=== PATIENT | male | born 1985 | race Two or more races ===

== ENCOUNTER 2021-02-23 10:56 | Inpatient (IN) | payer BC ==
[2021-02-23 11:36] VITALS: BMI 21.4
[2021-02-23] MEDS ORDERED: NICOTINE POLACRILEX 2 MG GUM BUC PRN (13:32)
[2021-02-23] MEDS ORDERED: BISMUTH SUBSALICYLATE 524 MG/30 ML PO PRN (13:32)
[2021-02-23] MEDS ORDERED: MAGNESIUM HYDROX 2400MG/30ML ORAL SUSPENSION 30 ML CUP PO PRN (13:32)
[2021-02-23] MEDS ORDERED: MENTHOL/PHENOL 1 EACH UD MM PRN (13:32)
[2021-02-23] MEDS ORDERED: MAGNESIUM CITRATE 300 ML BOTTLE PO PRN (13:32)
[2021-02-23] MEDS ORDERED: MAG HYDROX/AL HYDROX/SIMETH 30 ML UNIT-DOSE CUP PO PRN (13:32)
[2021-02-23] MEDS ORDERED: ONDANSETRON *ODT* 4 MG TABLET SL PRN (13:32)
[2021-02-23] MEDS ORDERED: ACETAMINOPHEN 325 MG TABLET (FP) PO PRN ×2 (13:32)
[2021-02-23] MEDS ORDERED: LORazepam 1 MG TABLET PO PRN (13:36)
[2021-02-23 15:26] LABS: HEMATOCRIT 39.7 % (35.4-49); HEMOGLOBIN 13.4 GM/dL (11.7-16.9); MCH 33.7 pg (25.7-33.7); MCHC 33.8 g/dl (32.0-35.9); MEAN CELL VOLUME 99.7 fl (80-96); MEAN PLT VOLUME 8.2 fl (7.5-11.1); PLATELET COUNT 260 10^3/uL (134-434); RBC 3.98 M/mm3 (4.00-5.60); RDW 12.5 % (11.9-15.9); WHITE BLOOD COUNT 7.7 K/mm3 (4.0-10.0)
[2021-02-23 15:28] LABS: CALCIUM 9.3 mg/dL (8.5-10.1)
[2021-02-23 15:29] LABS: ALBUMIN 4.5 g/dl (3.4-5.0); BLOOD UREA NITROGEN 21.9 mg/dL (7-18)
[2021-02-23] MEDS ORDERED: PATIENT'S OWN MEDICATION (NON-FORMULARY) (Losartan Potassium [Cozaar] 100 MG Tablet) PO SCH (15:30)
[2021-02-23 15:32] LABS: CREATININE 1.3 mg/dL (0.55-1.3)
[2021-02-23 15:34] LABS: BILIRUBIN,TOTAL 0.5 mg/dL (0.2-1); TOT PROT 8.3 g/dl (6.4-8.2)
[2021-02-23] MEDS: hydrOXYzine PAMOATE 25 MG CAPSULE (FP) PO SCH ×3 (15:51→22:41)
[2021-02-23 16:27] LABS: HIV INTERPRETATION NEGATIVE (NEGATIVE)
[2021-02-23] MEDS: LORazepam 2 MG TABLET PO SCH ×2 (17:28→22:41)
[2021-02-23] MEDS ORDERED: GABAPENTIN 300 MG PO SCH (22:00)
[2021-02-23] MEDS: MELATONIN 5 MG TABLETS PO SCH (22:41)
[2021-02-23] MEDS: THIAMINE HCL 100 MG TABLET (FP) PO SCH (22:41)
[2021-02-24] MEDS: LORazepam 2 MG TABLET PO SCH ×4 (07:08→22:19)
[2021-02-24] MEDS: hydrOXYzine PAMOATE 25 MG CAPSULE (FP) PO SCH (07:09)
[2021-02-24] MEDS ORDERED: POTASSIUM CHLORIDE TABS 20 MEQ TABLET.ER (FP) PO ONE (10:00)
[2021-02-24] MEDS: hydrOXYzine PAMOATE 25 MG CAPSULE (FP) PO PRN (10:33)
[2021-02-24] MEDS: METHOCARBAMOL 500 MG TABLET PO PRN (10:33)
[2021-02-24] MEDS: PRENATAL VITAMINS W/ FOLIC ACID TABLET (FP) PO SCH (10:33)
[2021-02-24] MEDS: LOSARTAN POTASSIUM 50 MG TABLET PO SCH (10:33)
[2021-02-24] MEDS ORDERED: cloNIDine HCL 0.1 MG TABLET PO ONE (19:41)
[2021-02-24] MEDS: THIAMINE HCL 100 MG TABLET (FP) PO SCH (22:19)
[2021-02-24] MEDS: QUEtiapine FUMARATE 200 MG TABLET PO SCH (22:19)
[2021-02-24] MEDS: MELATONIN 5 MG TABLETS PO SCH (22:20)
[2021-02-25] MEDS: LORazepam 1 MG TABLET PO SCH ×4 (06:14→23:14)
[2021-02-25] MEDS: SERTRALINE HCL 50 MG TABLET (FP) PO SCH (10:20)
[2021-02-25] MEDS: PRENATAL VITAMINS W/ FOLIC ACID TABLET (FP) PO SCH (10:20)
[2021-02-25] MEDS: LOSARTAN POTASSIUM 50 MG TABLET PO SCH (10:20)
[2021-02-25 10:30] LABS: CALCIUM 9.4 mg/dL (8.5-10.1)
[2021-02-25 10:31] LABS: ALBUMIN 4.2 g/dl (3.4-5.0); BLOOD UREA NITROGEN 18.6 mg/dL (7-18)
[2021-02-25 10:33] LABS: CREATININE 1.1 mg/dL (0.55-1.3)
[2021-02-25 10:34] LABS: BILIRUBIN,TOTAL 0.6 mg/dL (0.2-1); TOT PROT 7.9 g/dl (6.4-8.2)
[2021-02-25] MEDS: IBUPROFEN 400 MG TABLET (FP) PO PRN (18:07)
[2021-02-25] MEDS: ALBUTEROL SO4 HFA INHALER IH PRN (18:08)
[2021-02-25] MEDS: MELATONIN 5 MG TABLETS PO SCH (23:13)
[2021-02-25] MEDS: METHOCARBAMOL 500 MG TABLET PO PRN (23:13)
[2021-02-25] MEDS: QUEtiapine FUMARATE 200 MG TABLET PO SCH (23:14)
[2021-02-25] MEDS: hydrOXYzine PAMOATE 25 MG CAPSULE (FP) PO PRN (23:14)
[2021-02-25] MEDS: THIAMINE HCL 100 MG TABLET (FP) PO SCH (23:15)
[2021-02-26] MEDS ORDERED: LORazepam 0.5 MG TABLET PO PRN
[2021-02-26] MEDS: LORazepam 0.5 MG TABLET PO SCH ×4 (07:32→22:16)
[2021-02-26] MEDS: LOSARTAN POTASSIUM 50 MG TABLET PO SCH (10:58)
[2021-02-26] MEDS: SERTRALINE HCL 50 MG TABLET (FP) PO SCH (10:58)
[2021-02-26] MEDS: PRENATAL VITAMINS W/ FOLIC ACID TABLET (FP) PO SCH (11:00)
[2021-02-26] MEDS: IBUPROFEN 400 MG TABLET (FP) PO PRN (18:07)
[2021-02-26] MEDS: hydrOXYzine PAMOATE 25 MG CAPSULE (FP) PO PRN (18:08)
[2021-02-26] MEDS: THIAMINE HCL 100 MG TABLET (FP) PO SCH (22:16)
[2021-02-26] MEDS: QUEtiapine FUMARATE 200 MG TABLET PO SCH (22:16)
[2021-02-26] MEDS: MELATONIN 5 MG TABLETS PO SCH (22:16)
[2021-02-26] MEDS: ALBUTEROL SO4 HFA INHALER IH PRN (22:19)
[2021-02-26] MEDS ORDERED: cloNIDine HCL 0.1 MG TABLET PO ONE (22:38)
[2021-02-27] MEDS ORDERED: LORazepam 0.5 MG TABLET PO ONE (05:00)
[2021-02-27 09:32] VITALS: BP 149/104; PULSE 71; TEMP 97.7
[2021-02-27] MEDS: SERTRALINE HCL 50 MG TABLET (FP) PO SCH (09:32)
[2021-02-27] MEDS: PRENATAL VITAMINS W/ FOLIC ACID TABLET (FP) PO SCH (09:32)
[2021-02-27] MEDS: LOSARTAN POTASSIUM 50 MG TABLET PO SCH (09:32)
== END 2021-02-27 12:20 | disposition home or self-care (01) | DRG 775 ==
LOC: YASAS 10:56 → Y3N 13:26
PROVIDERS: ADMIT Allergy & Immunology; ATTEND Allergy & Immunology
PROC: HZ2ZZZZ Detoxification Services for Substance Abuse Treatment (ICD-10-PCS; principal; 2021-02-23)
DX: F10.230 Alcohol dependence with withdrawal, uncomplicated (principal); F12.20 Cannabis dependence, uncomplicated; F17.210 Nicotine dependence, cigarettes, uncomplicated; F25.9 Schizoaffective disorder, unspecified; F19.24 Other psychoactive substance dependence with psychoactive substance-induced mood disorder; I10 Essential (primary) hypertension; J45.909 Unspecified asthma, uncomplicated
CPT/HCPCS: 36415; 80053; 85027; 86780; 87389; 93005; 93010; C9803; J0735; U0003; U0005